=== PATIENT | female | born 1995 | race Caucasian/White ===

== ENCOUNTER 2020-12-30 08:00 | Inpatient (IN) ==
--- NOTE | 2020-12-29 20:25 | HP ---
Chief Complaint - Chief Complaint Date of Service: 12/29/20 Time of Service: 12:00 Chief Complaint: RLTCS History of Present Illness: 25 yo at 37w2d on DOA (12/30/20) presents for repeat low transverse section (RLTCS) due to intrahepatic cholestasis of . Patient hsa been having pruritus on palms of hands and soles of feet since 12/20/20. The symptoms are mild but worse at night. No relief with lotions, or salves. She denies rash, changes of skin color, abdominal pain, N/V/F/C, BARROS, visual changes, or decreased movement. This complicaed by anemia, IHCP, h/o GHTN, prior c/s, and Obesity. Rh positive Rubella immune GBS positive Medical History (Last Reviewed 12/29/20 @ 20:09 by Bobby Tan DO) Anemia affecting (Acute) Onset Date: 10/20/20 History of gestational hypertension (Chronic) Body mass index (BMI) 35.0-35.9, adult (Chronic) Anemia Onset Date: 02/20/19 w/ Gestational hypertension Onset Date: 04/21/19 Acne Onset Date: Unknown Colon polyp Onset Date: 03/22/15 Hyperplastic Wears glasses Onset Date: Unknown Chlamydia (Resolved) Onset Date: 10/13/18 Tx'd Closed bilateral ankle fractures Onset Date: Unknown Rectal bleeding Onset Date: Unknown Wrist fracture, left Onset Date: Unknown Surgical History: Surgical History (Last Reviewed 12/29/20 @ 20:09 by Bobby Tan DO) Previous section (Chronic) Hx of colonoscopy Onset Date: 03/22/15 w/biopsy-hyperplastic polyp. Recheck in 5 years. Tinguely History of primary section Onset Date: 04/26/19 Arrest of descent, arrest of dilation Family History: Family History (Last Reviewed 12/29/20 @ 20:09 by Bobby Tan DO) Mother Alive and well Father Hypertension Hyperlipemia Brother DVT (deep venous thrombosis) Cancer, Onset Age: 24 colon polyp Juvenile glaucoma Sister Alive and well Grandfather Diabetes Cancer prostate cancer Grandfather Diabetes Cancer Prostate Grandmother Leukemia Grandmother Cancer Breast Social History: (Last Reviewed 12/29/20 @ 20:09 by Bobby Tan DO) Social History: adopted: No Marital status: household members: spouse number of children: 1 current occupational status: unemployed current occupation: homemaker current occupational exposures/hazards: No Highest level of school completed/degree received: Associate degree: [employer] Sexually Active: Yes Service: No Tobacco: Smoking Status: Never smoker Alcohol: alcohol intake: former Substance Use: substance use type: does not use Dietary Habits: caffeine: Yes caffeine comment: 1 daily Type: coffee daily servings fruits/ve-4 daily servings of milk/calcium: 2-4 Exercise: Physical activity type: walking frequency: 3-4 times per week Review Of Systems (GEN) - Review of Systems Generalized/Overall Review: Present: No Symptoms Reported EENTM: Present: No Symptoms Reported Respiratory: Present: No Symptoms Reported Cardiac: Present: No Symptoms Reported Abdominal: Present: No Symptoms Reported Genitourinary: Present: No Symptoms Reported Musculoskeletal: Present: No Symptoms Reported Neurological: Present: No Symptoms Reported Skin: Present: Other - pruritus of palms of hands and soles of feet since 12/20/20. Immunizations: IMMUNIZATION HX Immunizations Up to Date Yes Allergies/Adverse Reactions: Allergies Allergy/AdvReac Type Severity Reaction Status Date / Time betamethasone Allergy Hives/rash Verified 12/29/20 10:47 Home Medications: HOME MEDICATIONS prenat.vits,yovany,[id number] 1 tab PO DAILY 10/13/18 [Last Taken 04/23/19 08:0 0] aspirin 81 mg tablet,delayed release 81 mg PO DAILY 07/26/20 [Last Taken Unknown] ferrous sulfate 325 mg (65 mg iron) tablet 325 mg PO DAILY #30 tab 10/20/20 [Last Taken Unknown] Exam - Exam Vital Signs: BP 128/62, Ht 1.68m, Wt 109.1 Kg, P 72, R 16, O2 99%, T <37C Constitutional: Present: Alert, Oriented x3, Cooperative, No distress ENT Exam: Present: hearing grossly normal Neck: Present: supple, trachea midline. Absent: thyromegaly Breasts: Present: Exam deferred Respiratory: Present: lungs clear, no respiratory distress Cardiovascular/Chest: Present: normal peripheral pulses, regular rate, rhythm Abdomen: Present: soft, nontender, no rebound tenderness, other - gravid /Rectal: Present: Exam deferred Extremity: Present: no calf tenderness, lower extremity edema - 1+ Skin Exam: Present: normal color, warm/dry, no cyanosis. Absent: jaundice, skin rash Lymphatic: Present: no adenopathy Neurologic: Present: alert, normal mood/affect, oriented x 3 Appearance: Present: appropriate appearance, appropriate insight Eye contact: Present: cooperative, good eye contact Thoughts: Present: normal thought pattern, normal mood /affect Assessment/Plan - Assessment/Plan (1) Previous section Assessment: The risks, benefits, and alternatives were thoroughly discussed with patient regarding timing of delivery and risks of IHCP. She understands the risks of stillbirth from IHCP is probably < 0.4% if her total bile acid salts are <40 and that the risk of her baby being born with complications from prematurity (respiratory distress, BS instability, heat instability, poor feeding, etc) and needing to be transferred to [facility] is less than 10%. Case was discussed with Dr Story (gas line installer ornamental bronze worker tomorrow) and he is in agreement with plan. Ms. Mancia desires to proceed with RTLCS on 12/30/20 at 37 2/7 weeks. All questions have been answered. Will proceed with surgery as planned. Problem: Chronic (2) Intrahepatic cholestasis of Problem: Acute (3) Anemia affecting Problem: Chronic Qualifiers: Trimester: third trimester Qualified Code(s): O99.013 - Anemia complicating , third trimester (4) History of gestational hypertension Problem: Chronic (5) Body mass index (BMI) 35.0-35.9, adult Problem: Chronic
[~2020-12-30 08:00] MED LIST: ceFAZolin SODIUM 1 GM VIAL IV PRN
[2020-12-30] MEDS ORDERED: Oxytocin/Ringers Lactate 20 UNITS/1,000 ML BAG IV ONE (10:48)
[2020-12-30] MEDS ORDERED: RINGER'S SOLUTION,LACTATED 1,000 ML IV PRN (10:48)
--- NOTE | 2020-12-30 11:55 | ANES ---
Anesthesia Pre Procedure Eval HOME MEDICATIONS prenat.vits,yovany,bau-srvh-zcixn 1 tab PO DAILY 10/13/18 [Last Taken 12/29/20] aspirin 81 mg tablet,delayed release 81 mg PO DAILY 07/26/20 [Last Taken 12/29/20] ferrous sulfate 325 mg (65 mg iron) tablet 325 mg PO DAILY #30 tab 10/20/20 [Last Taken 12/29/20] Allergies/Adverse Reactions: Allergies Allergy/AdvReac Type Severity Reaction Status Date / Time betamethasone Allergy Hives/rash Verified 12/29/20 10:47 - Planned Procedure Planned Procedure: Section with possible abdominal scar revi Medication List Reviewed:: Yes Allergies Verified: Yes Medical History (Last Reviewed 12/30/20 @ 11:51 by Tucker Regalado CRNA) Anemia affecting (Chronic) Onset Date: 10/20/20 History of gestational hypertension (Chronic) Body mass index (BMI) 35.0-35.9, adult (Chronic) Anemia Onset Date: 02/20/19 w/ Gestational hypertension Onset Date: 04/21/19 Acne Onset Date: Unknown Colon polyp Onset Date: 03/22/15 Hyperplastic Wears glasses Onset Date: Unknown Chlamydia (Resolved) Onset Date: 10/13/18 Tx'd Closed bilateral ankle fractures Onset Date: Unknown Rectal bleeding Onset Date: Unknown Wrist fracture, left Onset Date: Unknown Surgical History (Last Reviewed 12/30/20 @ 11:51 by Tucker Regalado CRNA) Previous section (Chronic) Hx of colonoscopy Onset Date: 03/22/15 w/biopsy-hyperplastic polyp. Recheck in 5 years. Tinguely History of primary section Onset Date: 04/26/19 Arrest of descent, arrest of dilation Family History (Last Reviewed 12/30/20 @ 11:51 by Tucker Regalado CRNA) Mother Alive and well Father Hypertension Hyperlipemia Brother DVT (deep venous thrombosis) Cancer, Onset Age: 24 colon polyp Juvenile glaucoma Sister Alive and well Grandfather Diabetes Cancer prostate cancer Grandfather Diabetes Cancer Prostate Grandmother Leukemia Grandmother Cancer Breast - Family Anesthesia History Family History:: no untoward family reactions to anesthesia, no familial bleeding tendencies, no family history of clotting disorders, no family history of premature - Airway/Neck/Teeth Within Normal Limits:: Yes Denture Type: Full upper Mallampatti Score: 2 Thyromental (T-M) distance: > 6 cm Mandibulo Hyoid distance: > 3 cm - Respiratory Respiratory Physical: lungs clear Smoking Status: Never smoker Discussed smoking cessation including day of surgery: No Sleep Apnea currently treated: No Sleep Apnea by current assessment: No Discussed Risks/Treatment of STEPHANIE: No - Cardiovascular Tolerate Activity: Good Heart Sounds: S1 & S2, Regular - Gastrointestinal NPO since: mn - Anesthesia Assessment and Plan ASA Class: PS, II Anesthesia Type Plan: Block - Bilateral TAP blocks for postop analgesia, Spinal
[2020-12-30] MEDS ORDERED: NALOXONE HCL 0.4 MG/ML VIAL IV PRN (11:56)
[2020-12-30] MEDS ORDERED: diphenhydrAMINE HCL 50 MG/ML VIAL IV PRN (11:56)
[2020-12-30] MEDS ORDERED: HYDROmorphone HCL 2 MG/ML VIAL IV PRN (11:56)
[2020-12-30] MEDS ORDERED: ONDANSETRON HCL/PF 2 MG/ML VIAL IV PRN ×2 (11:56→14:26)
[2020-12-30] MEDS ORDERED: PROCHLORPERAZINE EDISYLATE 5 MG/ML VIAL IV PRN (11:56)
[2020-12-30] MEDS ORDERED: ceFAZolin SODIUM 1 GM VIAL ONE (12:04)
[2020-12-30] MEDS ORDERED: fentaNYL CITRATE/PF 50 MCG/ML AMPUL ONE (12:49)
[2020-12-30] MEDS ORDERED: ONDANSETRON HCL/PF 2 MG/ML VIAL ONE (12:49)
[2020-12-30] MEDS ORDERED: MIDAZOLAM HCL/PF 5 MG/ML VIAL ONE (12:49)
[2020-12-30] MEDS ORDERED: BUPIVACAINE HCL/EPINEPHRINE 50 ML VIAL ONE (12:50)
--- NOTE | 2020-12-30 14:22 | OR ---
Operative Report - Dictated Report Narrative: Indication: 25-year-old 2 para 1 with prior section presents for repeat low transverse section at 37-2/7 weeks due to intrahepatic cholestasis of . status: Planned Pre Operative Diagnosis: 37 2/7 weeks intrauterine . Prior section. Intrahepatic cholestasis of . Morbid obesity. Post Operative Diagnosis: Same. Procedure: Repeat low transverse section. Surgeon: Celeste Tan DO Vb Net Programmer: OR Staff Anesthesia: Spinal, TAP block Estimated Blood Loss: 400 mL Urine Output: 75 mL of clear urine Fluids Replacement: 1900 mL of crystalloid Drains: Florian to gravity Surgical Complications: None Specimens: Placenta to pathology Findings: Female born at 1321 on 12/30/2022 with Apgars 8 and 8, weighing 2878 g in cephalic presentation. Normal uterus, tubes, ovaries Technique: The patient was taken to the operating room and placed in dorsal supine position with a left lateral tilt. After adequate spinal anesthesia, florian catheter inserted, SCDs placed, and 2 g of Ancef given preoperatively, the abdominal cavity was entered using sharp and blunt dissection. Two rolled laps were placed in the pericolic gutters on either side of the uterus. A transverse incision was made in the lower uterine segment and extended laterally and upwardly with digital traction. Clear fluid was noted upon amniotomy. The was delivered easily. The cord was clamped and cut and was handed off to awaiting cricket coach. The placenta was allowed to deliver spontaneously. The uterus was cleared of clot and debris. Uterine incision was closed with 0 Vicryl using a running stitch. Brisk return of bleeding noted on the right corner of the incision required 3 kgbcsz-ls-[id number] sutures to control the bleeding. A second imbricating layer was placed. Excellent hemostasis was noted. The rolled laps were removed from the abdominal cavitiy. The peritoneum was closed with a running 3-0 Monocryl. The same suture was used to approximate the rectus and pyramidalis muscles. The fascia was closed with a running 0 Vicryl. The subcutaneous layer was closed with a running 3-0 Monocryl. The same suture was used to approximate the subdermal layer. The skin was closed with a running 4-0 Monocryl and Dermabond. Sponge, lap, needle, and instrument count were correct x 2. Disposition: To post anesthesia care unit in good condition History for MU History for MU Definition: * The number of deliveries resulting in a live the patient experienced prior to current hospitalization * The previous delivery of live twins or any live multiple gestation is considered one live event. *If primagravida or nulliparous is documented select zero for the number of previous live births. Live Events: Live Events: 1
[2020-12-30] MEDS ORDERED: BISACODYL 10 MG SUPP.RECT RC PRN (14:26)
[2020-12-30] MEDS ORDERED: SIMETHICONE 80 MG TAB.CHEW PO PRN (14:26)
[2020-12-30] MEDS ORDERED: SENNOSIDES 8.6 MG TABLET PO PRN (14:26)
--- NOTE | 2020-12-30 14:34 | ANES ---
Post Anesthesia Discharge - Transfer of Care Transfer of Care handoff given to nurse: Yes - Discharge from PACU Discharge from PACU when meets criteria: Yes - Discharge to ASU Discharge to ASU-no complications/pt stable: Yes
--- NOTE | 2020-12-30 14:35 | ANES ---
Anesthesia Procedure Note Procedure Note: ANESTHESIA PROCEDURE NOTE Date of Procedure: 12/30/2020. Time of procedure: 1420. Performed by: Tucker Regalado CRNA Mortgage Professional: None. Preprocedure diagnosis: Repeat . Post procedure diagnosis: Same. Procedure: Bilateral ultrasound-guided transversus abdominis plane block for postop analgesia. Indications: The patient is a 25-year-old female post section. Findings: See below. Details of the procedure: ChloraPrep was used on the patient's abdomen and the procedure was performed under sterile technique. The right abdominal fascial layer between the internal oblique muscle and the transversus abdominis muscles was identified under ultrasound guidance. A 21-gauge 4 inch block needle was inserted under ultrasound guidance to the target fascial plane. 15 mL's of 0.5% bupivacaine plus epinephrine 1:200,000 was injected after negative aspiration for blood. The needle was removed intact and the procedure was then repeated at the left side. No complications were noted. The images were retained in the hospital medical database. EBL: Minimal. Fluids: N/A. Specimen: N/A. Post procedure condition: The patient tolerated the procedure well. No complications were noted. Thank you for this consultation. Tucker Regalado CRNA
--- NOTE | 2020-12-30 14:36 | ANES ---
Post Anesthesia Assessment - Vital Signs Vitals: Last Vital Signs Temp 36.7 C 12/30/20 14:30 Pulse 101 H 12/30/20 14:30 Resp 17 12/30/20 14:30 BP 120/96 H 12/30/20 14:30 Pulse Ox 100 12/30/20 14:30 Airway Patency: Normal - Mental Status Level Of Consciousness: Awake - Pain Level Pain Score: 0 - N/V Assessment Nausea/Vomiting Presence: None Dehydration:: No
[2020-12-30] MEDS: IBUPROFEN 800 MG TABLET PO PRN ×2 (15:27→22:40)
[2020-12-30] MEDS: oxyCODONE HCL/ACETAMINOPHEN 1 TAB TABLET PO PRN ×2 (15:27→19:19)
[2020-12-30] MEDS: DOCUSATE SODIUM 100 MG CAPSULE PO SCH (22:29)
[2020-12-30] MEDS: ENOXAPARIN SODIUM 40 MG/0.4 ML SYRG SC SCH (23:22)
[2020-12-31] MEDS: IBUPROFEN 800 MG TABLET PO PRN ×3 (04:49→19:31)
[2020-12-31] MEDS: oxyCODONE HCL/ACETAMINOPHEN 1 TAB TABLET PO PRN (08:56)
[2020-12-31] MEDS: DOCUSATE SODIUM 100 MG CAPSULE PO SCH ×2 (08:56→20:28)
[2020-12-31] MEDS: FERROUS SULFATE 325 MG TABLET PO SCH (08:56)
[2020-12-31] MEDS: PRENATAL VITS96/IRON FUM/FOLIC 1 TAB TABLET PO SCH (08:56)
--- NOTE | 2020-12-31 09:14 | PN ---
Subjective - Date and Time Seen Date: 12/31/20 Time: 09:12 Objective - Vitals Vitals: Last Vital Signs Temp 36.0 C 12/31/20 06:44 Pulse 89 12/31/20 06:44 Resp 18 12/31/20 06:44 BP 134/62 12/31/20 06:44 Pulse Ox 98 12/31/20 06:44 Patient denies complaints. Tolerating regular diet. Ambulating without difficulty. Pain well controlled. Lochia wnl. Breast-feeding Abdomen - soft, appropriately tender Incision -clean, dry, intact uterus - firm, at umbilicus -1 No calf tenderness Impression: Post op day #1 s/p repeat section. IHCP-resolving Plan: Continue routine post-operative/ care Cauti Physician Documentation - Urinary Catheter Management Urethral (Chung) Date of Insertion: 12/30/20 Time of Insertion: 13:05 Date of Removal: 12/31/20 Time of Removal: 01:40 Assessment/Plan - Problems/Diagnosis (1) Previous section Problem: Chronic (2) Intrahepatic cholestasis of Problem: Acute (3) Anemia affecting Problem: Chronic Qualifiers: Trimester: third trimester Qualified Code(s): O99.013 - Anemia complicating , third trimester (4) History of gestational hypertension Problem: Chronic (5) Body mass index (BMI) 35.0-35.9, adult Problem: Chronic
[2020-12-31] MEDS: ENOXAPARIN SODIUM 40 MG/0.4 ML SYRG SC SCH (23:04)
[2021-01-01] MEDS: FERROUS SULFATE 325 MG TABLET PO SCH ×2 (07:02→09:10)
[2021-01-01] MEDS: DOCUSATE SODIUM 100 MG CAPSULE PO SCH ×3 (07:02→20:48)
[2021-01-01] MEDS: PRENATAL VITS96/IRON FUM/FOLIC 1 TAB TABLET PO SCH ×2 (07:03→09:10)
[2021-01-01] MEDS: IBUPROFEN 800 MG TABLET PO PRN ×2 (07:03→19:36)
--- NOTE | 2021-01-01 10:50 | PN ---
Subjective - Date and Time Seen Date: 01/01/21 Time: 10:50 Objective - Vitals Vitals: Last Vital Signs Temp 36.0 C 01/01/21 07:27 Pulse 82 01/01/21 07:27 Resp 18 01/01/21 07:27 BP 129/85 01/01/21 07:27 Pulse Ox 98 01/01/21 07:27 Patient denies complaints. Ambulating well. Tolerating regular diet. Pain well controlled. Lochia wnl. Abdomen - soft, appropriately tender Incision -clean, dry, intact uterus - firm, at umbilicus -2 No calf tenderness Impression: Post op day #2 s/p repeat section. Plan: Continue routine post-operative/ care Cauti Physician Documentation - Urinary Catheter Management Urethral (Chung) Date of Insertion: 12/30/20 Time of Insertion: 13:05 Date of Removal: 12/31/20 Time of Removal: 01:40 Assessment/Plan - Problems/Diagnosis (1) Previous section Problem: Chronic (2) Intrahepatic cholestasis of Problem: Acute (3) Anemia affecting Problem: Chronic Qualifiers: Trimester: third trimester Qualified Code(s): O99.013 - Anemia complicating , third trimester (4) History of gestational hypertension Problem: Chronic (5) Body mass index (BMI) 35.0-35.9, adult Problem: Chronic
--- NOTE | 2021-01-01 10:55 | DS ---
OB Discharge Summary (1) Previous section Status: Chronic (2) Intrahepatic cholestasis of Status: Resolved (3) Anemia affecting Status: Chronic Qualifiers: Trimester: third trimester Qualified Code(s): O99.013 - Anemia complicating , third trimester (4) History of gestational hypertension Status: Chronic (5) Body mass index (BMI) 35.0-35.9, adult Status: Chronic (6) Status post repeat low transverse section Status: Acute Delivery Date: 12/30/20 Delivery Time: 13:21 :: 2 Para:: 1 Gestational weeks:: 37 Gestational days:: 2 Intrapartum Procedures: Secondary Section, Delivery-Low Transverse, Anesthesia - Spinal Discharge Diagnosis: Term -Delivered - Discharge Information Date of Discharge: 01/02/21 Hospital Course: 25-year-old 2 now para 2 admitted at 37 weeks 2 days for repeat low transverse section due to complicated by intrahepatic cholestasis of . Delivery and course were uncomplicated. Patient was discharged to home on postop day #3 with routine discharge instructions. Discharge Location: Home Disposition: Home self-care Condition: Good Activity on Discharge:: Activity as tolerated, Pelvic Rest Discharge Diet: General/regular food Additional Patient Instructions (free text): Emily you have an appointment with Dr. Tan on Moira has an appointment on Moira blood type is O+. Her weight today was 6lbs 0.4oz. Her bili level today at 63 hours of life was 11.5. Moira has passed her hearing screen, she passed her CHD screen, her metabolic screen has been drawn. Please continue to nurse Miora on demand or every 2-3 hours. Prescriptions (Any new or edited meds): Ibuprofen [Motrin] 200 - 800 mg PO Q6H PRN #100 tab PRN Reason: Pain oxyCODONE HCL/ACETAMINOPHEN [Percocet 5 MG/325 MG] 1 tab PO Q4H PRN #10 tab PRN Reason: Moderate Pain Transmission Status: Received by [facility] #[id number] Complete Home Medications List: Complete Home Medication List: prenat.vits,yovany,fju-zklb-dapvr 1 tab PO DAILY 10/13/18 ferrous sulfate 325 mg (65 mg iron) tablet 325 mg PO DAILY #30 tab 10/20/20 Ibuprofen [Motrin] 200 - 800 mg PO Q6H PRN #100 tab 12/31/20 oxyCODONE HCL/ACETAMINOPHEN [Percocet 5 MG/325 MG] 1 tab PO Q4H PRN #10 tab 12/31/20 - Plan Discharge to:: Home Follow up in office in:: 2 weeks - Information Weight (Grams): 2,878 Sex: Female Score 1 min: 8 Score 5 min: 8
[2021-01-01] MEDS: ENOXAPARIN SODIUM 40 MG/0.4 ML SYRG SC SCH (22:42)
[2021-01-02] MEDS: FERROUS SULFATE 325 MG TABLET PO SCH ×2 (07:37→08:56)
[2021-01-02] MEDS: DOCUSATE SODIUM 100 MG CAPSULE PO SCH ×2 (07:37→08:55)
[2021-01-02] MEDS: PRENATAL VITS96/IRON FUM/FOLIC 1 TAB TABLET PO SCH ×2 (07:37→08:56)
[2021-01-02] MEDS: IBUPROFEN 800 MG TABLET PO PRN (07:37)
[2021-01-02 07:48] VITALS: BP 126/79
--- NOTE | 2021-01-02 08:47 | PN ---
Subjective - Date and Time Seen Date: 01/02/21 Time: 08:40 Objective - Vitals Vitals: Last Vital Signs Temp 36.3 C 01/02/21 07:47 Pulse 82 01/02/21 07:47 Resp 18 01/02/21 07:47 BP 126/79 01/02/21 07:47 Pulse Ox 98 01/02/21 07:47 Patient denies complaints. Ambulating without difficulty. Tolerating regular diet. Pain well controlled. Lochia wnl. Abdomen - soft, appropriately tender Incision -clean, dry, intact uterus - firm, at umbilicus -3 No calf tenderness Impression: Post op day #3 s/p repeat section. Plan: Routine discharge instructions Cauti Physician Documentation - Urinary Catheter Management Urethral (Chung) Date of Insertion: 12/30/20 Time of Insertion: 13:05 Date of Removal: 12/31/20 Time of Removal: 01:40 Assessment/Plan - Problems/Diagnosis (1) Previous section Problem: Chronic (2) Intrahepatic cholestasis of Problem: Resolved (3) Anemia affecting Problem: Chronic Qualifiers: Trimester: third trimester Qualified Code(s): O99.013 - Anemia complicating , third trimester (4) History of gestational hypertension Problem: Chronic (5) Body mass index (BMI) 35.0-35.9, adult Problem: Chronic (6) Status post repeat low transverse section Problem: Acute
== END 2021-01-02 09:50 | disposition home or self-care (01) | DRG 786 ==
LOC: OB 10:44
PROVIDERS: ADMIT Obstetrics & Gynecology; ATTEND Obstetrics & Gynecology